=== PATIENT | female | born 1970 | race Caucasian/White ===

== ENCOUNTER → 2017-10-29 | Outpatient (CLI) | payer BC, OTHER ==
[~2017-10-29] MED LIST: BUPROPION XL300 MG PO; INFLECTRA100 MG IV; LOSARTAN-HCTZ1 EACH PO; PRILOSEC 20 MG20 MG PO; PROZAC10 MG PO
[2017-10-29 14:20] VITALS: BP 125/70
[2017-10-29 15:59] VITALS: BP 125/70
== END ==
LOC: OPONC 10-20 13:59
DX: L40.0 Psoriasis vulgaris (principal)

== ENCOUNTER → 2017-11-12 | Outpatient (CLI) | payer BC, OTHER ==
[2017-11-12 09:10] VITALS: BP 139/81
== END ==
LOC: OPONC 02:04
DX: L40.0 Psoriasis vulgaris (principal)